=== PATIENT | male | born 1995 | race Caucasian/White ===

== ENCOUNTER 2017-11-24 11:38 | Emergency (ER) | payer OTHER, SELFPAY ==
[2017-11-24 11:40] VITALS: BP 147/75; PULSE 91; RESP 16; TEMP 36.4; O2SAT 97; BMI 25.7
--- NOTE | 2017-11-24 12:00 | ED.VISSUMM ---
- ER Visit Summary Date of Service: 11/24/17 Chief Complaint: [Head injury] History of Present Illness: The patient is a 22 M [presents to the emergency department for evaluation of a head injury that occurred 9 days ago. Patient states the injury was work-related. 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 Patient states that he was placing a screw when he accidentally somehow bumped his head on a metal beam. There was no loss of consciousness. Patient did sustain a small laceration. Approximately an hour and a half after the injury he vomited ?2 but has had no further vomiting since that time. Patient is completely asymptomatic and denies headache, difficulty with vision, difficulty sleeping, or difficulty concentrating. Patient states that he filed a workman's comp claim and his boss just wanted to have him checked out.] Physical Examination: [HEENT-PERRLA, EOMI. Cranial nerves II through XII grossly intact. TMs clear. Mucous membranes moist. No adenopathy. Patient has a small 1 cm healed laceration to the posterior occiput. No bony depressions or step-offs noted. Cardiovascular-regular rate and rhythm without murmur or ectopy Lungs-clear to auscultation, chest wall stable without crepitus or subcu emphysema Abdomen-normoactive bowel sounds, soft, nontender, no rebound or rigidity, no peritoneal signs. Neuro ijct-[id number]-cyqk and heel garcia testing within normal limits, negative Romberg, negative pronator drift, fundi benign Extremities-intact ?4, normal range of motion, normal pulses, atraumatic] Test Results: None indicated [] Emergency Department Course and Treatment: [] Treatment Plan: [Advised to take Motrin or Tylenol as needed.] Disposition: [Discharged to home in stable condition. No further work restrictions warranted.] Impression: [Closed head injury Scalp [id number]] This note was generated with [employer] dictation software. It may contain incorrect words, spelling, and punctuation that were not noted in review of the chart prior to signing ED Disposition - Plan for ED Patient: Chief Complaint: Head Injury
--- NOTE | 2017-11-24 12:03 | ED.DCSUM_ITS ---
- ER Visit Summary Date of Service: 11/24/17 Chief Complaint: [Head injury] History of Present Illness: The patient is a 22 M [presents to the emergency department for evaluation of a head injury that occurred 9 days ago. Patient states the injury was work-related. 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 Patient states that he was placing a screw when he accidentally somehow bumped his head on a metal beam. There was no loss of consciousness. Patient did sustain a small laceration. Approximately an hour and a half after the injury he vomited ?2 but has had no further vomiting since that time. Patient is completely asymptomatic and denies headache, difficulty with vision, difficulty sleeping, or difficulty concentrating. Patient states that he filed a workman's comp claim and his boss just wanted to have him checked out.] Physical Examination: [HEENT-PERRLA, EOMI. Cranial nerves II through XII grossly intact. TMs clear. Mucous membranes moist. No adenopathy. Patient has a small 1 cm healed laceration to the posterior occiput. No bony depressions or step-offs noted. Cardiovascular-regular rate and rhythm without murmur or ectopy Lungs-clear to auscultation, chest wall stable without crepitus or subcu emphysema Abdomen-normoactive bowel sounds, soft, nontender, no rebound or rigidity, no peritoneal signs. Neuro rznv-jeblrb-bcmr and heel garcia testing within normal limits, negative Romberg, negative pronator drift, fundi benign Extremities-intact ?4, normal range of motion, normal pulses, atraumatic] Test Results: None indicated [] Emergency Department Course and Treatment: [] Treatment Plan: [Advised to take Motrin or Tylenol as needed.] Disposition: [Discharged to home in stable condition. No further work restrictions warranted.] Impression: [Closed head injury Scalp [id number]] This note was generated with [employer] dictation software. It may contain incorrect words, spelling, and punctuation that were not noted in review of the chart prior to signing ED Disposition - Plan for ED Patient: Chief Complaint: Head Injury
--- NOTE | 2017-11-24 12:03 | ED.DEP ---
ED Disposition - Plan for ED Patient: Chief Complaint: Head Injury Instructions: ED Head Injury Closed, ED Laceration Old Not Sutr Referrals: [facility] [GROUP OF PHYSICIANS] - As Needed
== END 2017-11-24 12:35 | disposition home or self-care (01) ==
LOC: ED 12:24
PROVIDERS: Emergency Provider Emergency Medicine
DX: S01.01XA Laceration without foreign body of scalp, initial encounter (principal); W22.8XXA Striking against or struck by other objects, initial encounter; Y93.89 Activity, other specified; Y92.9 Unspecified place or not applicable; Y99.0 Civilian activity done for income or pay
CPT/HCPCS: 99283

== ENCOUNTER 2017-11-24 12:42 | Emergency (ER) | payer SELFPAY ==
[2017-11-24 12:53] VITALS: BP 152/87; PULSE 75; PULSE 84; RESP 14; RESP 16; TEMP 36.8; O2SAT 97; O2SAT 98; BMI 26.4
--- NOTE | 2017-11-24 13:18 | ED.VISSUMM ---
- ER Visit Summary Date of Service: 11/24/17 Chief Complaint: [Possible Chlamydia infection] History of Present Illness: The patient is a 22 M [presents to the emergency department requesting treatment for chlamydia. Patient states that his girlfriend told him 2 days ago she had chlamydia and is being treated for it. Patient denies any discharge from his penis or fever. Patient denies dysuria. Patient has not had any prior genital or venereal diseases.] Physical Examination: [HEENT-PERRLA, EOMI. Cranial nerves II through XII grossly intact. TMs clear. Mucous membranes moist. No adenopathy. Cardiovascular-regular rate and rhythm without murmur or ectopy Lungs-clear to auscultation, chest wall stable without crepitus or subcu emphysema Abdomen-normoactive bowel sounds, soft, nontender, no rebound or rigidity, no peritoneal signs. exam-deferred Extremities-intact ?4, normal range of motion, normal pulses, atraumatic] Test Results: [Urine was ordered for GC and chlamydia] Emergency Department Course and Treatment: [Patient was treated with Rocephin 250 mg IM and thousand milligram of Zithromax p.o.] Treatment Plan: [] Disposition: [Discharged to home in stable condition. Patient advised to return if drainage from penis, fever, or condition should worsen in any way.] Impression: [Urethritis] This note was generated with [employer] dictation software. It may contain incorrect words, spelling, and punctuation that were not noted in review of the chart prior to signing ED Disposition - Plan for ED Patient: Chief Complaint: Complaint Referrals: Care Physician,No Primary [Primary Care Provider] -
--- NOTE | 2017-11-24 13:21 | ED.DEP ---
ED Disposition - Plan for ED Patient: Chief Complaint: Complaint Instructions: ED Urethritis Infec Vs Inflam Male Referrals: Care Physician,No Primary [Primary Care Provider] - Asad Hooker MD [STAFF PHYSICIAN] - As Needed
[2017-11-24 13:56] VITALS: PULSE 78; RESP 14; O2SAT 98
[2017-11-24] MEDS: Ceftriaxone 500 MG Vial 250 MG IM (13:56)
[2017-11-24] MEDS: Azithromycin 250 MG Tablet 1000 MG PO (13:56)
[2017-11-24 15:17] LABS: Chlamydia Trachomatis by PCR POSITIVE (Negative); Neisserai gonorrhoeae by PCR Negative (Negative); Probe Check PASS; Sample Adequacy Control PASS; Specimen Processing Control PASS
== END 2017-11-24 14:02 | disposition home or self-care (01) ==
LOC: ED 13:57
PROVIDERS: Emergency Provider Emergency Medicine
DX: N34.2 Other urethritis (principal)
CPT/HCPCS: 87491; 87591; 96372; 99283